=== PATIENT | female | born 1970 | race Caucasian/White ===

== ENCOUNTER → 2016-09-18 | Outpatient (CLI) | payer OTHER ==
[~2016-09-18] MED LIST: NEXI20CA PO
--- NOTE | 2016-09-19 12:16 | REP ---
THYROID UPTAKE AND SCAN: History: Hyperthyroid. Technique: 399 microcuries of I-123 sodium iodine is ingested and 24 uptake and functional images are acquired. Findings: The 24 hour uptake value is normal at 29.02% (25-35%). Functional images demonstrate normal symmetric homogeneous uptake in the thyroid lobes bilaterally. No cold or warm lesion is seen. Impression: Normal thyroid nuclear scan and uptake. Signed by Andi Alvarez MD 09/19/2016 03:09 P
== END ==
LOC: M RAD 10:16
PROVIDERS: ATTEND Internal Medicine Endocrinology, Diabetes & Metabolism
DX: E05.00 Thyrotoxicosis with diffuse goiter without thyrotoxic crisis or storm (principal)

== ENCOUNTER → 2016-10-17 | Outpatient (CLI) | payer OTHER | LOC: M RAD 10:40 | PROVIDERS: ATTEND Internal Medicine Endocrinology, Diabetes & Metabolism | DX: E05.00 Thyrotoxicosis with diffuse goiter without thyrotoxic crisis or storm (principal) | CPT/HCPCS: 36415; 84702; A9517 ==